=== PATIENT | female | born 1995 | race Caucasian/White ===

== ENCOUNTER 2019-12-31 15:35 | Emergency (ER) | payer OTHER, MEDICAID ==
[~2019-12-31] VITALS: Ht 165.1 cm; Wt 74.8 kg
[2019-12-31 17:49] LABS: ABSOLUTE EOSINOPHILS 0.1 thou/uL (0.0-0.7); ABSOLUTE LYMPHOCYTES 1.6 thou/uL (0.8-5.3); ABSOLUTE MONOCYTES 0.6 thou/uL (0.0-1.2); ABSOLUTE NEUTROPHILS 5.4 thou/uL (1.6-8.1); BASOPHILS 0.6 %; EOSINOPHILS 1.2 %; HEMATOCRIT 32.4 % (37.0-47.0); HEMOGLOBIN 11.2 gm/dL (12.0-15.0); LYMPHOCYTES 20.8 %; MCH 30.7 pg (26.0-34.0); MCHC 34.5 g/dL (28.0-37.0); MONOCYTES 7.2 %; MPV 8.4 fl. (7.2-11.1); NUCLEATED RBCS 0 /100WBC; PLATELET COUNT* 180 thou/uL (150-400); POLYS 70.2 %; RBC 3.64 mil/uL (4.20-5.00); RDW-CV 15.3 % (10.5-14.5); WBC 7.7 thou/uL (4.0-11.0)
[2019-12-31 17:57] LABS: CALCIUM 8.6 mg/dL (8.5-10.1); CREATININE 0.5 mg/dL (0.6-1.3); POTASSIUM 3.6 mmol/L (3.5-5.1)
[2019-12-31 18:02] LABS: ALBUMIN 2.8 g/dL (3.4-5.0); TOTAL BILIRUBIN 0.3 mg/dL (<0.1-1.0); TOTAL PROTEIN 6.6 g/dL (6.4-8.2)
[2019-12-31] MEDS ORDERED: FLEXERIL PO (19:23)
[2019-12-31 19:40] VITALS: BP 120/71
--- NOTE | 2020-01-01 15:35 | EKG ---
[place] [address] ELECTROCARDIOGRAM REPORT Name: AUREABEAR Room: [facility]#: [id number] Admission: 12/31/19 Attend Phys: Discharge: 12/31/19 Date of : 89 Date of Service: 12/31/19 1620 Report #: [id number] THIS REPORT FOR: //name// [facility] ED Test Date: 2019-12-31 Test Time: 16:20:08 Pat Name: BEAR VILLAR Department: Room: Gender: F [employer]: TDS : 1995 Requested By: Cristy Mccurdy Order Number: [id number] MD: Noah Hi Measurements Intervals Kamas Rate: 106 P: 37 GA: 139 QRS: 82 QRSD: 92 T: -7 QT: 345 QTc: 459 Interpretive Statements Sinus tachycardia Probable left atrial enlargement Borderline Q waves in inferior leads Borderline T abnormalities, inferior leads No previous ECG available for comparison Electronically Signed On 01-01-2020 15:34:53 CDT by Noah Hi [email or web address] <ELECTRONICALLY SIGNED> By: Noah Hi MD, [facility] 01/01/20 1534 1620 1620 Noah Hi MD, [facility] /EPI
== END 2019-12-31 19:41 | disposition home or self-care (01) ==
LOC: M.ERS 15:35
PROVIDERS: Nurse Practitioner Family
DX: O26.893 Other specified pregnancy related conditions, third trimester (principal); R07.89 Other chest pain; Z3A.38 38 weeks gestation of pregnancy